=== PATIENT | male | born 1975 | race African-American/Black ===

== ENCOUNTER 2020-07-04 16:00 | Emergency (ER) | payer OTHER ==
[2020-07-04 18:20] LABS: #Eosinphils 0.3 thou/uL (0.0-0.7); #Lymphocytes 1.9 thou/uL (1.20-3.40); #Monocytes 0.9 thou/uL (0.11-0.59); %Basophils 0.3 % (0.0-1.0); %Eosinophils 2.4 % (0.0-10.0); %Lymphocytes 13.3 % (21.0-51.0); %Monocytes 6.1 % (0.0-10.0); %Neutrophils 77.9 % (42.0-75.0); Hemoglobin 11.3 g/dL (14.0-18.0); Mean Corpuscular HGB CONC 32.8 g/dL (32.0-36.0); Mean Corpuscular Hemoglobin 30.1 pg (27.0-31.0); Mean Corpuscular Volume 91.7 fL (78.0-98.0); Mean Platelet Volume 6.9 fL (7.4-10.4); Platelet Count 361 thou/uL (130-400); RBC Distribution Width 12.7 % (11.5-14.5); Red Blood Cell (RBC) Count 3.74 mill/uL (4.70-6.10); White Blood Cell (WBC) Count 14.1 thou/uL (4.8-10.8)
[2020-07-04 18:42] LABS: Anion Gap 18 mmol/L (10-20); BUN (Urea Nitrogen) 90 mg/dL (8.9-20.6); Calc. Creatinine Clearance 0 mL/min (70-130); Calcium 7.4 mg/dL (7.8-10.44); Carbon Dioxide 23 mmol/L (22-29); Chloride 104 mmol/L (98-107); Glucose 92 mg/dL (70-105); Sodium 141 mmol/L (136-145)
== END 2020-07-04 18:15 ==
LOC: ERS 16:00
DX: I73.00 Raynaud's syndrome without gangrene (principal); I12.0 Hypertensive chronic kidney disease with stage 5 chronic kidney disease or end stage renal disease; N18.6 End stage renal disease
CPT/HCPCS: 36415; 80048; 85025; 93923

== ENCOUNTER 2020-10-14 16:55 | Inpatient (IN) | payer OTHER ==
[2020-10-14 18:49] LABS: #Eosinphils 0.3 thou/uL (0.0-0.7); #Lymphocytes 1.6 thou/uL (1.20-3.40); #Monocytes 0.6 thou/uL (0.11-0.59); #Neutrophils 7.5 thou/uL (1.40-6.50); %Basophils 0.4 % (0.0-1.0); %Eosinophils 2.7 % (0.0-10.0); %Monocytes 5.7 % (0.0-10.0); %Neutrophils 75.3 % (42.0-75.0); Hemoglobin 10.8 g/dL (14.0-18.0); Mean Corpuscular HGB CONC 34.4 g/dL (32.0-36.0); Mean Platelet Volume 7.7 fL (7.4-10.4); Platelet Count 257 thou/uL (130-400); RBC Distribution Width 12.1 % (11.5-14.5); Red Blood Cell (RBC) Count 3.47 mill/uL (4.70-6.10)
[2020-10-14 19:13] LABS: ALT (SGPT) Less than 7 U/L (8-55); AST (SGOT) 7 U/L (5-34); Albumin 3.8 g/dL (3.5-5.0); Alkaline Phosphatase 76 U/L (40-110); Anion Gap 19 mmol/L (10-20); BUN (Urea Nitrogen) 70 mg/dL (8.9-20.6); Bilirubin, Total 0.4 mg/dL (0.2-1.2); Calc. Creatinine Clearance 0 mL/min (70-130); Calcium 7.5 mg/dL (7.8-10.44); Carbon Dioxide 21 mmol/L (22-29); Chloride 103 mmol/L (98-107); Globulin 3.1 g/dL (2.4-3.5); Glucose 100 mg/dL (70-105); Magnesium 1.9 mg/dL (1.6-2.6); Phosphorus 5.6 mg/dL (2.3-4.7); Potassium 5.4 mmol/L (3.5-5.1); Protein, Total 6.9 g/dL (6.0-8.3); Sodium 138 mmol/L (136-145)
[2020-10-14] MEDS ORDERED: Calcium Chloride 1 GM/10 ML Abboject SYRINGE ONE (19:43)
[2020-10-14] MEDS ORDERED: Insulin Regular 300 UNITS/3 ML VIAL ONE (19:43)
[2020-10-14] MEDS ORDERED: Dextrose 50% Abboject 50 ML SYRINGE ONE (19:43)
[2020-10-14] MEDS ORDERED: Sodium Bicarb 50 MEQ/50 ML Abboject 8.4% SYRINGE ONE (19:43)
[2020-10-14 21:29] VITALS: BMI 43.4
[2020-10-14] MEDS ORDERED: Labetalol HCl 100 MG/20 ML VIAL SLOW IVP PRN (22:07)
[2020-10-14] MEDS ORDERED: Ondansetron ODT 4 MG TAB PO PRN (22:07)
[2020-10-14] MEDS ORDERED: hydrALAZINE 20 MG/ML VIAL SLOW IVP PRN (22:07)
[2020-10-14] MEDS ORDERED: Acetaminophen 500 MG TAB PO PRN (22:07)
[2020-10-14] MEDS ORDERED: Ondansetron PF 4 MG/2 ML Vial IVP PRN (22:07)
[2020-10-15 05:30] LABS: #Basophils 0.1 thou/uL (0.0-0.2); #Eosinphils 0.4 thou/uL (0.0-0.7); #Lymphocytes 1.6 thou/uL (1.20-3.40); #Monocytes 0.8 thou/uL (0.11-0.59); #Neutrophils 6.8 thou/uL (1.40-6.50); %Basophils 0.5 % (0.0-1.0); %Eosinophils 4.2 % (0.0-10.0); %Lymphocytes 16.7 % (21.0-51.0); %Monocytes 7.9 % (0.0-10.0); %Neutrophils 70.7 % (42.0-75.0); Hemoglobin 10.5 g/dL (14.0-18.0); Mean Corpuscular HGB CONC 32.4 g/dL (32.0-36.0); Mean Corpuscular Hemoglobin 29.2 pg (27.0-31.0); Mean Corpuscular Volume 90.1 fL (78.0-98.0); Mean Platelet Volume 7.8 fL (7.4-10.4); Platelet Count 268 thou/uL (130-400); RBC Distribution Width 12.3 % (11.5-14.5); Red Blood Cell (RBC) Count 3.59 mill/uL (4.70-6.10); White Blood Cell (WBC) Count 9.6 thou/uL (4.8-10.8)
[2020-10-15 05:47] LABS: Anion Gap 18 mmol/L (10-20); BUN (Urea Nitrogen) 69 mg/dL (8.9-20.6); Calc. Creatinine Clearance 22 mL/min (70-130); Calcium 7.8 mg/dL (7.8-10.44); Carbon Dioxide 23 mmol/L (22-29); Chloride 102 mmol/L (98-107); Glucose 106 mg/dL (70-105); Magnesium 1.9 mg/dL (1.6-2.6); Phosphorus 6.2 mg/dL (2.3-4.7); Potassium 4.1 mmol/L (3.5-5.1); Sodium 139 mmol/L (136-145)
[2020-10-15 06:05] LABS: HBSAB Concentration Less than 8.00 mIU/mL; HBSAg Index 0.22 S/CO (0-0.99); Hep B Core Total Ab Non-Reactive (NonReactive); Hep B Core Total Index 0.36 S/CO (0-0.79); Hep B Surf AB Non-Reactive (NonReactive); Hep B Surf Ag Non-Reactive S/CO (NonReactive); Hep C IgG Ab Non-Reactive (NonReactive); Hep C Index 0.07 S/CO (0-0.79)
[2020-10-15] MEDS: Famotidine 20 MG TAB PO SCH (08:20)
[2020-10-15] MEDS ORDERED: Tuberculin PPD 0.1 ML VIAL I-DERMAL SCH (11:30)
[2020-10-15 13:59] LABS: SARS-CoV-2 PCR by NAA Not Detected (NotDetected)
[2020-10-15] MEDS: diphenhydrAMINE 25 MG CAP PO PRN (23:05)
[2020-10-16] MEDS: diphenhydrAMINE 25 MG CAP PO PRN ×2 (04:46→21:58)
[2020-10-16 05:43] LABS: #Basophils 0.1 thou/uL (0.0-0.2); #Eosinphils 0.4 thou/uL (0.0-0.7); #Lymphocytes 1.9 thou/uL (1.20-3.40); #Monocytes 0.8 thou/uL (0.11-0.59); #Neutrophils 6.2 thou/uL (1.40-6.50); %Basophils 0.7 % (0.0-1.0); %Eosinophils 4.7 % (0.0-10.0); %Lymphocytes 20.5 % (21.0-51.0); %Neutrophils 66.1 % (42.0-75.0); Hemoglobin 11.2 g/dL (14.0-18.0); Mean Corpuscular HGB CONC 31.9 g/dL (32.0-36.0); Mean Corpuscular Hemoglobin 29.3 pg (27.0-31.0); Mean Platelet Volume 7.8 fL (7.4-10.4); Platelet Count 269 thou/uL (130-400); RBC Distribution Width 12.1 % (11.5-14.5); Red Blood Cell (RBC) Count 3.82 mill/uL (4.70-6.10); White Blood Cell (WBC) Count 9.4 thou/uL (4.8-10.8)
[2020-10-16 05:54] LABS: Anion Gap 17 mmol/L (10-20); BUN (Urea Nitrogen) 59 mg/dL (8.9-20.6); Calc. Creatinine Clearance 24 mL/min (70-130); Calcium 7.4 mg/dL (7.8-10.44); Carbon Dioxide 22 mmol/L (22-29); Chloride 100 mmol/L (98-107); Glucose 95 mg/dL (70-105); Potassium 4.2 mmol/L (3.5-5.1); Sodium 135 mmol/L (136-145)
[2020-10-16] MEDS ORDERED: Polyethylene Glycol 3350 17 GM Packet PO SCH (12:45)
[2020-10-16] MEDS: Amlodipine 5 MG TAB PO SCH (19:51)
[2020-10-16] MEDS: Famotidine 20 MG TAB PO SCH (19:52)
[2020-10-16] MEDS: Senokot S 8.6-50 MG TAB PO SCH (21:58)
[2020-10-16] MEDS ORDERED: Famotidine 20 MG TAB PO SCH (22:45)
[2020-10-16] MEDS ORDERED: Amlodipine 5 MG TAB PO SCH (22:45)
[2020-10-17 05:15] LABS: #Basophils 0.1 thou/uL (0.0-0.2); #Eosinphils 0.5 thou/uL (0.0-0.7); #Lymphocytes 1.6 thou/uL (1.20-3.40); #Neutrophils 6.8 thou/uL (1.40-6.50); %Basophils 0.6 % (0.0-1.0); %Eosinophils 4.5 % (0.0-10.0); %Lymphocytes 16.5 % (21.0-51.0); %Monocytes 9.7 % (0.0-10.0); %Neutrophils 68.7 % (42.0-75.0); Hemoglobin 10.9 g/dL (14.0-18.0); Mean Corpuscular HGB CONC 33.7 g/dL (32.0-36.0); Mean Corpuscular Hemoglobin 30.6 pg (27.0-31.0); Mean Corpuscular Volume 90.8 fL (78.0-98.0); Mean Platelet Volume 7.7 fL (7.4-10.4); Platelet Count 229 thou/uL (130-400); RBC Distribution Width 12.2 % (11.5-14.5); Red Blood Cell (RBC) Count 3.56 mill/uL (4.70-6.10)
[2020-10-17 05:41] LABS: Anion Gap 16 mmol/L (10-20); BUN (Urea Nitrogen) 50 mg/dL (8.9-20.6); Calc. Creatinine Clearance 26 mL/min (70-130); Calcium 7.7 mg/dL (7.8-10.44); Carbon Dioxide 26 mmol/L (22-29); Chloride 102 mmol/L (98-107); Glucose 94 mg/dL (70-105); Potassium 4.5 mmol/L (3.5-5.1); Sodium 139 mmol/L (136-145)
[2020-10-17] MEDS: Amlodipine 5 MG TAB PO SCH (10:29)
[2020-10-17] MEDS: Famotidine 20 MG TAB PO SCH (10:30)
[2020-10-17] MEDS: Senokot S 8.6-50 MG TAB PO SCH ×2 (10:30→21:00)
[2020-10-17] MEDS: Polyethylene Glycol 3350 17 GM Packet PO SCH ×2 (10:31→10:35)
[2020-10-18] MEDS: guaiFENesin ER 600 MG TAB PO SCH ×2 (05:27→22:13)
[2020-10-18] MEDS: Amlodipine 5 MG TAB PO SCH (09:33)
[2020-10-18] MEDS: Senokot S 8.6-50 MG TAB PO SCH ×2 (09:34→22:13)
[2020-10-18] MEDS: Famotidine 20 MG TAB PO SCH (09:34)
[2020-10-19] MEDS: diphenhydrAMINE 25 MG CAP PO PRN (04:07)
[2020-10-19] MEDS: Famotidine 20 MG TAB PO SCH (09:26)
[2020-10-19] MEDS: Amlodipine 5 MG TAB PO SCH (09:26)
[2020-10-19] MEDS: guaiFENesin ER 600 MG TAB PO SCH ×2 (09:27→20:31)
[2020-10-19] MEDS: Polyethylene Glycol 3350 17 GM Packet PO SCH (09:52)
[2020-10-19] MEDS: Senokot S 8.6-50 MG TAB PO SCH ×2 (09:52→20:35)
[2020-10-20] MEDS: diphenhydrAMINE 25 MG CAP PO PRN ×2 (03:03→13:46)
[2020-10-20] MEDS: Polyethylene Glycol 3350 17 GM Packet PO SCH (10:00)
[2020-10-20] MEDS: Famotidine 20 MG TAB PO SCH (10:00)
[2020-10-20] MEDS: Senokot S 8.6-50 MG TAB PO SCH (10:00)
[2020-10-20] MEDS: Amlodipine 5 MG TAB PO SCH (10:00)
[2020-10-20] MEDS: guaiFENesin ER 600 MG TAB PO SCH (10:00)
[2020-10-20 20:01] VITALS: BP 139/84; TEMP 98.5
== END 2020-10-20 20:16 | DRG 683 ==
LOC: ERS 16:55 → EEVIPCON 16:55 → 2SW 19:53 → OBSVTOIN 22:07
PROVIDERS: ADMIT Family Medicine; ATTEND Internal Medicine
PROC: 5A1D70Z Performance of Urinary Filtration, Intermittent, Less than 6 Hours Per Day (ICD-10-PCS; principal; 2020-10-18)
DX: N17.9 Acute kidney failure, unspecified (principal); I12.0 Hypertensive chronic kidney disease with stage 5 chronic kidney disease or end stage renal disease; E87.2 Acidosis; Z68.41 Body mass index [BMI] 40.0-44.9, adult; E87.1 Hypo-osmolality and hyponatremia; N18.6 End stage renal disease; D63.1 Anemia in chronic kidney disease; E66.01 Morbid (severe) obesity due to excess calories; E87.5 Hyperkalemia; Z20.822 Contact with and (suspected) exposure to COVID-19; Z98.890 Other specified postprocedural states; Z84.1 Family history of disorders of kidney and ureter; Z99.2 Dependence on renal dialysis
CPT/HCPCS: 36415; 80048; 80053; 83735; 84100; 85025; 86580; 86704; 86706; 86803; 87340; 90935; 96374; 96375; G0257; G0378; J1815; Q0163; U0003; U0005

== ENCOUNTER 2020-11-13 04:12 | Emergency (ER) | payer OTHER ==
[2020-11-13] MEDS ORDERED: Acetaminophen 500 MG TAB ONE ×2 (05:05→11:05)
[2020-11-13] MEDS ORDERED: Ondansetron PF 4 MG/2 ML Vial ONE (05:05)
[2020-11-13 05:23] LABS: ALT (SGPT) Less than 7 U/L (8-55); AST (SGOT) 10 U/L (5-34); Albumin 4.2 g/dL (3.5-5.0); Alkaline Phosphatase 68 U/L (40-110); Anion Gap 17 mmol/L (10-20); BUN (Urea Nitrogen) 25 mg/dL (8.9-20.6); Bilirubin, Total 0.5 mg/dL (0.2-1.2); Calc. Creatinine Clearance 0 mL/min (70-130); Calcium 8.5 mg/dL (7.8-10.44); Carbon Dioxide 28 mmol/L (22-29); Chloride 98 mmol/L (98-107); Globulin 3.7 g/dL (2.4-3.5); Glucose 112 mg/dL (70-105); Potassium 4.1 mmol/L (3.5-5.1); Protein, Total 7.9 g/dL (6.0-8.3); Sodium 139 mmol/L (136-145)
[2020-11-13 05:54] LABS: Hemoglobin 10.8 g/dL (14.0-18.0); Mean Corpuscular HGB CONC 31.4 g/dL (32.0-36.0); Mean Corpuscular Hemoglobin 29.3 pg (27.0-31.0); Mean Corpuscular Volume 93.5 fL (78.0-98.0); Mean Platelet Volume 7.2 fL (7.4-10.4); Platelet Count 324 thou/uL (130-400); Red Blood Cell (RBC) Count 3.68 mill/uL (4.70-6.10)
[2020-11-13 06:16] LABS: SARS-CoV-2 NAA Rapid Test Not Detected (NotDetected)
[2020-11-13 06:34] LABS: White Blood Cell (WBC) Count 26.2 thou/uL (4.8-10.8)
[2020-11-13] MEDS ORDERED: Cefepime 2 GM VIAL ONE (06:39)
[2020-11-13 06:41] LABS: Band 24 % (5-11); Lymphocytes 9 % (21-51); MDiff Complete? YES; Monocytes 6 % (0-10); Neutrophil 61 % (42-75)
[2020-11-13] MEDS ORDERED: VANCOMYCIN 2 GRAM/400 ML BAG 2 GM in Premix Bag 1 BAG IVPB SCH (06:45)
[2020-11-13 07:35] LABS: Bacteria/HPF None Seen HPF (None Seen); Bilirubin Negative (Negative); Blood, Urine 1+ (Negative); Clarity Clear (Clear); Glucose, Urine (Dipstick) Normal (Negative); Ketone, Urine Negative (Negative); Leukocyte Negative Leu/uL (Negative); Nitrite Negative (Negative); Protein, Urine (Dipstick) 100 mg/dL (Neg-Trace); Specific Gravity, Urine 1.014 (1.002-1.036); Squamous Epithelial 0-3 HPF (0-3); Urobilinogen Normal mg/dL (Less than 2); WBC/HPF 0-3 HPF (0-3); pH, Urine 7.5 (5.0-9.0)
[2020-11-13] MEDS ORDERED: Fentanyl 100 MCG/2 ML VIAL ONE (09:54)
== END 2020-11-13 16:12 | disposition short-term general hospital (02) ==
LOC: ERS 04:12
DX: R50.82 Postprocedural fever (principal); I12.0 Hypertensive chronic kidney disease with stage 5 chronic kidney disease or end stage renal disease; N18.6 End stage renal disease; Z79.899 Other long term (current) drug therapy; Z20.822 Contact with and (suspected) exposure to COVID-19
CPT/HCPCS: 0240U; 71045; 80053; 81003; 81015; 83605; 85025; 87040; 87077; 87086; 87149; 87186; 93005; 96365; 96366; 96367; 96375; J0692; J2405; J3010; J3370